=== PATIENT | male | born 1950 | race Caucasian/White ===

== ENCOUNTER 2023-10-05 15:40 | Emergency (ER) | payer OTHER, SELFPAY ==
[2023-10-05 15:46] VITALS: BP 144/68
--- NOTE | 2023-10-05 16:58 | ED.MUSCINJ ---
HPI-Injury
General
Chief Complaint: Fall
Source: patient
Exam Limitations: none
Time Seen by Provider: 10/05/23 16:14
Travel History
Have you had any contact with someone who has COVID-19?: No
Do you have any symptoms of coronavirus? Fever > 100 degrees, chills, cough, shortness of breath, sore throat, loss of taste or smell, muscle aches, or headache?: No
History of Present Illness-Injury
Initial Injury comments:
72-year-old male on [place] presents after trip and fall. He hit the top of his head. He also notes neck pain. No loss of conscious. He denies significant headache. No nausea vomiting. He denies arm numbness or weakness. No other complaints
at this time
Past History
Past History
ED Past Medical History: HTN, Hypercholesterolemia and Other (two herniated discs, two 'bad knee's'.)
Social History
Tobacco: Non-smoker
Alcohol: Occasional
Drug: None
Personal:
Living: with family
Employment: Disabled
Family History
Family History: Other (Nonsig.)
Phy Exam
Physical Exam
Physical Exam:
General: Well-appearing male no acute respiratory distress
HEENT: Normocephalic atraumatic pupils equal round reactive to light
Musculoskeletal exam: Cervical spine is nontender to palpation good range of motion all extremities
Neurologic exam: Conversing appropriately no slurred speech normal gait
Injury Course
Orders/Labs/Results
Orders:
Orders
10/05/23 15:49
CT Cervical Spine W/o Iv Contr Urgent
Comment:
Reason For Exam: fall, neck pain
CT Head W/o Iv Contrast Urgent
Comment:
Reason For Exam: fall, head strike, blood thinners
MDM/Problems Addressed
Differential Diagnosis Includes:
Mechanical fall with head injury and neck discomfort. CT of the head and cervical spine ordered to evaluate for intracranial hemorrhage or fracture. CT of the head is negative for acute finding. CT neck shows degenerative changes but no fracture.
Patient reassured. Stable for discharge. Return precautions were given
*Critical Care Note
Total Time (30-74mins, 75-104mins- exclusive of procedures): Not Applicable
ED Attending Note
-
Portions of this chart may have been created with voice recognition software.� Occasional wrong word or��sound alike� substitutions may have occurred due to the inherent limitations of voice recognition software.
Discharge Plan
Departure
Patient Disposition: Home (Routine Discharge)
Date of Disposition: 10/05/23
Time of Disposition: 16:59
Patient with high blood pressure during this ER visit?: No
Discharge Problem:
Fall
Instructions: Head Injury in Adults (DC)
Prescriptions:
No Action
furosemide [Lasix] 40 mg Tablet
40 mg PO DAILY
pravastatin 40 mg Tablet
40 mg PO DAILY
metoprolol succinate [Toprol XL] 100 mg Tablet Extended Release 24 Hr
100 mg PO DAILY
clopidogrel [Plavix] 75 mg Tablet
75 mg PO DAILY
tramadol 50 mg Tablet
50 mg PO QIDPRN PRN (Reason: moderate pain)
valsartan-hydrochlorothiazide 80-12.5 mg Tablet
1 tab PO DAILY
glimepiride 4 mg Tablet
4 mg PO BID
Januvia 100 mg Tablet
100 mg PO DAILY
Eliquis 5 mg Tablet
5 mg PO BID
Jardiance 10 mg Tablet
10 mg PO DAILY
Referrals:
Scott Mendoza DO [Family Provider] -
Activity Restrictions/Additional Instructions:
You may take Tylenol for pain. Use warm compresses to the neck. Return for worsening symptoms otherwise follow-up with family doctor
Interventions
Interventions:
*General Assessment Last Done: 10/05/23 15:47
*ED COVID-19 Vaccine History Last Done: 10/05/23 15:47
*Nursing Disposition Last Done: 10/05/23 17:40
ED-Musculoskeletal Assessment Last Done: 10/05/23 17:09
ED- Neurological Assessment Last Done: 10/05/23 17:09
ED-Skin Assessment Last Done: 10/05/23 17:09
Discharge Date and Time
Discharge Date/Time: 10/05/23 17:40
Print Language: NAURUAN
== END 2023-10-05 17:40 | disposition home or self-care (01) ==
LOC: EMR 15:40
PROVIDERS: EMERGENCY PHYSICIAN Emergency Medicine; FAMILY PHYSICIAN Family Medicine
DX: S09.90XA Unspecified injury of head, initial encounter (principal); M54.2 Cervicalgia; W01.0XXA Fall on same level from slipping, tripping and stumbling without subsequent striking against object, initial encounter; I10 Essential (primary) hypertension; E78.00 Pure hypercholesterolemia, unspecified; M51.25 Other intervertebral disc displacement, thoracolumbar region; Z79.01 Long term (current) use of anticoagulants
CPT/HCPCS: 99284; 70450; 72125

== ENCOUNTER 2023-12-04 12:13 | Emergency (ER) | payer OTHER, SELFPAY ==
[2023-12-04 12:24] VITALS: BP 130/73
--- NOTE | 2023-12-04 13:39 | ED.GENMED ---
History of Present Illness
General
Chief Complaint: Skin Surface Trauma
Source: patient
Exam Limitations: none
Time Seen by Provider: 12/04/23 12:55
Nursing documentation reviewed up to this point in time: agreed with
Travel History
Have you had any contact with someone who has COVID-19?: No
Do you have any symptoms of coronavirus? Fever > 100 degrees, chills, cough, shortness of breath, sore throat, loss of taste or smell, muscle aches, or headache?: No
History of Present Illness
History of Present Illness:
Patient presents to ED secondary to accidental left hand laceration, which occurred shortly prior arrival, when he dropped running stopper grinder on top of his hand. Denies any other injuries. Denies loss of sensation or weakness. Denies difficulty with
finger movements. Patient's vaccinations are up-to-date, including tetanus vaccination. Denies dizziness or shortness of breath. Denies weakness. Denies recent illness.
Past History
Past History
ED Past Medical History: HTN, Hypercholesterolemia and Other (two herniated discs, two 'bad knee's'.)
Social History
Tobacco: Non-smoker
Alcohol: Occasional
Drug: None
Personal:
Living: with family
Employment: Disabled
Family History
Family History: Other (Nonsig.)
Review of Systems
Review of Systems
Allergies reviewed?: Yes
All Other Systems: ROS reviewed and negative except as documented in HPI and ROS
Constitutional: Reports no symptoms
Musculoskeletal: Reports other (hand pain)
Skin: Reports other (hand laceration)
Neurological: Reports no symptoms; Denies weakness or numbness
Phy Exam
Physical Exam
Physical Exam:
Physical Exam
General: no apparent distress, not acutely ill. afebrile
Head: nc/at. eomi
Neck: supple. normal range of motion.
Neuro: alert and oriented. no focal neurological deficits
Skin: an approx 7cm linear laceration noted over lateral aspect of palmar aspect of left hand, with tendon intact.
Psychiatric: well kept. interactive and cooperative
Extremities: no edema. no calf tenderness.
Course
Vital Signs
Initial and Last Documented VS:
Initial Vital Signs
Temp Pulse Resp BP Pulse Ox
98.1 F 74 18 130/73 98
12/04/23 12:24 12/04/23 12:24 12/04/23 12:24 12/04/23 12:24 12/04/23 12:24
Last Documented Vital Signs
Temp Pulse Resp BP Pulse Ox
98.1 F 74 18 130/73 98
12/04/23 12:24 12/04/23 12:24 12/04/23 12:24 12/04/23 12:24 12/04/23 12:24
Procedures
Laceration Closure
Left Lateral Palmar Hand:
Status of Wound: dirty
Size of Wound in cm: 7
Description of Wound Edges: sharp
Preparation: cleaned with saline and cleaned with SurClens
Anesthesia: 1% Lidocaine with epi
Revision/Debridement: routine- no revision
Wound exploration: extensive cleaning of contaminated wound
Type of Closure: single layer closure
Skin Closure Material: 5-0 nylon
Number of sutures: 14
MDM/Problems Addressed
MDM/Problems Addressed:
Hand laceration irrigated extensively, anesthesia, with use of 18-gauge Angiocath attached to 20 mL syringe. Tendon exposed and visualized -do not appreciate tendon injury during exam. Flexion intact with good strength. Patient states that he has
an ongoing relationship with hand surgeon at [facility], with whom he will follow-up upon discharge. Wound will be loosely approximated and splint provided afterwards.
*Critical Care Note
Total Time (30-74mins, 75-104mins- exclusive of procedures): Not Applicable
ED Attending Note
-
Portions of this chart may have been created with voice recognition software.� Occasional wrong word or��sound alike� substitutions may have occurred due to the inherent limitations of voice recognition software.
Discharge Plan
Departure
Patient Disposition: Home (Routine Discharge)
Date of Disposition: 12/04/23
Time of Disposition: 14:35
Patient with high blood pressure during this ER visit?: Yes
Condition: Fair
Discharge Problem:
Hand laceration
Instructions: Laceration Repair With Stitches (DC)
Prescriptions:
No Action
furosemide [Lasix] 40 mg Tablet
40 mg PO DAILY
pravastatin 40 mg Tablet
40 mg PO DAILY
metoprolol succinate [Toprol XL] 100 mg Tablet Extended Release 24 Hr
100 mg PO DAILY
clopidogrel [Plavix] 75 mg Tablet
75 mg PO DAILY
tramadol 50 mg Tablet
50 mg PO QIDPRN PRN (Reason: moderate pain)
valsartan-hydrochlorothiazide 80-12.5 mg Tablet
1 tab PO DAILY
glimepiride 4 mg Tablet
4 mg PO BID
Januvia 100 mg Tablet
100 mg PO DAILY
Eliquis 5 mg Tablet
5 mg PO BID
Jardiance 10 mg Tablet
10 mg PO DAILY
Referrals:
Gio Perez MD [Family Provider] -
Activity Restrictions/Additional Instructions:
As discussed, please follow-up with your hand surgeon at [facility] this week for reevaluation, as there is great concern for potential tendon injury from the laceration.
Interventions
Interventions:
*Risk Screen - Suicide Last Done: 12/04/23 12:24
*Neglect/Abuse Screening Last Done: 12/04/23 12:24
*ED COVID-19 Vaccine History Last Done: 12/04/23 12:24
*Nursing Disposition Last Done: 12/04/23 14:54
ED-Skin Assessment Last Done: 12/04/23 13:30
Discharge Date and Time
Discharge Date/Time: 12/04/23 14:55
Print Language: [place]
== END 2023-12-04 14:55 | disposition home or self-care (01) ==
LOC: EMR 12:13
PROVIDERS: EMERGENCY PHYSICIAN Emergency Medicine; FAMILY PHYSICIAN Student in an Organized Health Care Education/Training Program
DX: S61.422A Laceration with foreign body of left hand, initial encounter (principal); W31.89XA Contact with other specified machinery, initial encounter; E78.00 Pure hypercholesterolemia, unspecified; M51.25 Other intervertebral disc displacement, thoracolumbar region; E11.9 Type 2 diabetes mellitus without complications; I11.0 Hypertensive heart disease with heart failure; I50.9 Heart failure, unspecified; Z87.442 Personal history of urinary calculi; Z79.02 Long term (current) use of antithrombotics/antiplatelets; Z79.84 Long term (current) use of oral hypoglycemic drugs
CPT/HCPCS: 99282; 12042